=== PATIENT | male | born 1945 | race Caucasian/White ===

== ENCOUNTER 2017-04-23 09:48 | Emergency (ER) | payer MEDICARE, BC | END 2017-04-23 11:47 | disposition home or self-care (01) | LOC: D.ER 09:48 | DX: J02.9 Acute pharyngitis, unspecified (principal); I10 Essential (primary) hypertension; E11.9 Type 2 diabetes mellitus without complications ==

== ENCOUNTER → 2018-01-30 12:59 | Outpatient (CLI) | payer MEDICARE ==
--- NOTE | ~2018-01-30 | EC ---
PATIENT:LUCIO SALAS DATE OF SERVICE: 01/30/18 SEX: M MEDICAL RECORD: [id number] DATE OF : [birth year] LOCATION:[facility] AGE OF PATIENT: 72 ADMISSION DATE: 01/30/18 REFERRING PHYSICIAN: INTERPRETING PHYSICIAN: GIACOMO COWAN MD ECHOCARDIOGRAM REPORT ECHO CHARGES 4 ECHO COMPLETE CLINICAL DIAGNOSIS: CHEST PAIN, DYSPNEA, ABN EKG,HTN ECHOCARDIOGRAPHIC MEASUREMENTS (adult normal given) AC root (d.<3.7cm) 3.7 cm LV Septum d (<1.2 cm> 1.5 cm Valve Excursion 2.2 cm LV Septum (systole) 1.8 cm Left Atria (s.<4.0cm> 4.0 cm LVPW d(<1.2cm) 1.5 cm RV (d.<2.3cm) 2.7 cm LVPW (sytole) 2.0 cm LV diastole(<5.6CM) 5.3 cm MV E-F(>70mm/sec) cm LV systole 3.0 cm LVOT Diameter 1.9 cm MV exc.(>10mm) 1.2 cm Est.ejection fraction (50-75%) % Pericardial Effusion N DOPPLER: LVIT cm/sec A 97.0 cm/sec E 59.0 cm/sec LA cm/sec RVSP 34 mmHg LVOT 109 cm/sec AOP1/2T m/s Asc. Ao 151 cm/sec RVOT 79 cm/sec RA cm/sec PA 148 cm/sec AV Gradient Peak 9.10 mmHg AV Mean 4.56 mmHg AV Area 2.0 cm MV Gradient Peak 3.95 mmHg MV Mean 1.56 mmHg MV Area cm COMMENTS: Armhole Presser: Sherif LYNN Patient Service Technician Pst: Aaron Cowan TAPE# PACS DATE OF SERVICE: 01/30/2018 PROCEDURE: Transthoracic echocardiogram. FINDINGS: 1. The patient has evidence of mild left ventricular hypertrophy and inflow characteristics consistent with diastolic dysfunction. Ejection fraction is 60%. No obvious regional wall motion abnormalities. 2. The left atrium is mildly dilated. 3. The mitral valve is structurally normal. No significant regurgitation. ECHOCARDIOGRAM REPORT [id number] LUCIO SALAS 4. The tricuspid valve is structurally normal. No significant regurgitation. The estimated PA pressure is 30-35 mmHg. 5. The right ventricle is mildly dilated, normal function. Right atrium is normal size, normal function. There is no pericardial effusion. The pulmonic valve is grossly normal. CONCLUSION: The patient has evidence of mild hypertensive heart disease. Otherwise normal echocardiogram for age. TRANSINT:[id number] Voice Confirmation ID: [id number] DOCUMENT ID: [id number] 02/06/2018 Edited to correct date of service, dmm. GIACOMO COWAN MD at 1001 CC: [id number] DICTATION DATE: 02/01/18 0739 BLUNGER: 02/01/18 0944 DEP CLI 01/30/18 [id number] [place] [address]
[~2018-01-30 12:59] MED LIST: CENTRUM SILVER1 TA1 PO; CINNAMON500 MG PO; CITRATE OF MAG300 ML PO; DIOVAN HCT 160/1 TA1 PO; ESSENTIAL ENZYMES; FLOMAX0.4 MG PO; FUROSEMIDE20 MG PO; GLUCOPHAGE850 MG PO; HEMOCYTE PLUS C1 CAP PO; LIPITOR20 MG PO; LOPRESSOR25 MG PO; MAGNESIUM PO; MELATONIN10 M1 PO; PEPCID20 MG PO; PERCOCET 5-3251 TAB PO; PLAVIX75 MG PO; VITAMIN D31000 UNI2 PO; ZYRTEC PO; [UNRECOGNIZED DRUG - OTHER]
[2018-04-04 09:54] VITALS: BMI 32.1
== END | disposition home or self-care (01) ==
LOC: D.ECHO 12:59
DX: R07.9 Chest pain, unspecified (principal); R06.02 Shortness of breath; R00.2 Palpitations; R94.31 Abnormal electrocardiogram [ECG] [EKG]; I10 Essential (primary) hypertension; E11.9 Type 2 diabetes mellitus without complications

== ENCOUNTER → 2018-02-19 16:33 | Outpatient (CLI) | payer MEDICARE ==
[2018-02-19 19:55] LABS: ALT (SGPT) 90 U/L (10-68); CHOL - HDL RATIO 10.5 ratio (2.3-4.9); CHOLESTEROL, TOTAL 252 mg/dL (0-200); CREATINE KINASE 200 UL (21-232); HDL CHOLESTEROL 24 mg/dL (32-96); TRIGLYCERIDE 444 mg/dL (30-200)
[2018-04-04 09:54] VITALS: BMI 32.1
== END | disposition home or self-care (01) ==
LOC: D.LABREF 16:33
PROVIDERS: Internal Medicine Cardiovascular Disease
DX: E78.5 Hyperlipidemia, unspecified (principal)

== ENCOUNTER 2018-03-20 07:42 | Outpatient (CLI) | payer MEDICARE ==
[~2018-03-20] VITALS: Ht 170.2 cm; Wt 88.2 kg
--- NOTE | ~2018-03-20 | HEMODYNAMI ---
PATIENT:LUCIO SALAS MEDICAL RECORD: [id number] : 49 LOCATION:[facility] ADMISSION DATE: 03/20/18 Generatedon:03/20/20189:24 Patient name: LUCIO SALAS Patient #: [id number] SSN: : 1945 Date of study: 03/20/2018 Page: Of Hemodynamic Procedure Report Patient Data Patient Demographics Procedure consent was obtained First Name: LUCIO Gender: Male Last Name: JOSUE : 1945 Middle Initial: C Age: 72 year(s) Patient #: [id number] Race: Unknown Additional ID: [id number] Contact details Address: [address] [place] [address] State: [place] City: [place] Zip code: [address] Past Medical History Allergies: No known allergies Admission Admission Data Admission Date: 03/20/2018 Admission Time: 7:42 Admit Source: Other Lab Results Lab Result Date: 03/20/2018 Lab Result Time: 0:00 Biochemistry Name Units Result Min Max BUN mg/dl 27 --(----)-* 7 18 Creatinine mg/dl 1.5 --(----)-* 0.6 1.3 CBC Name Units Result Min Max Hemoglobin g/dl 13.5 --(*---)-- 13.5 17.5 Procedure Procedure Types Cath Procedure Diagnostic Procedure [facility] w/Coronaries Sedation Charges Moderate Sedation up to 15 minutes Procedure Description Procedure Date Procedure Date: 03/20/2018 Procedure Start Time: 9:01 Procedure End Time: 9:21 Procedure Staff Name Function Zana Monsalve MD Performing Physician Rachana Street RT Monitor Eldon Mayfield RT Scrub David Childress RN Nurse Procedure Data Cath Procedure Fluoroscopy Diagnostic fluoroscopy Total fluoroscopy Time: 2.6 time: 2.6 min min Diagnostic fluoroscopy Total fluoroscopy dose: 682 dose: 682 mGy mGy Contrast Material Contrast Material Type Amount (ml) Isovue 300 55 Entry Location Entry Primary Successful Side Size Upsize Upsize Entry Closure Bunn ccessful Closure Location (Fr) 1 (Fr) 2 (Fr) Remarks Device Remarks Radial Right 6 Fr Mechanical artery Short Compression Estimated blood loss: 5 ml Diagnostic catheters Device Type Used For End Catheter Placement DIAGNOSTIC [place] 110cm Procedure 5Fr catheter ([id number]) Procedure Complications No complications Procedure Medications Medication Administration Route Dosage 0.9% NaCl I.V. 100 ml/hr Oxygen etCO2 Nasal cannula 2 l/min Heparin Flush Bag added to field 2 bags (1000units/500ml NS) Lidocaine 2% added to field 20 Radial Cocktail added to field 1 syringe (Verapomil 2mg/Nitro 400mcg/Heparin 1500units) Versed I.V. 2 mg Fentanyl I.V. 50 mcg Versed I.V. 1 mg Radial Cocktail I.A. 1 syringe (Verapomil 2mg/Nitro 400mcg/Heparin 1500units) Nitroglycerin IC/IA I.C. 75 mcg Hemodynamics Rest HGB: 13.5 (g/dl) Heart Rate: 69 (bpm) Pressure Samples Time Site Value (mmHg) Purpose Heart Use Rate(bpm) 9:09 LV 94/-8,3 EDP 67 Gradients Valve Time Site Site Mean SEP/DFP Peak To Heart Use 1 2 (mmHg) (sec/min) Peak Rate (mmHg) (bpm) Aortic 9:10 LV AO 46 Snapshots Pre Cath Intra NCS Post Cath Vital Signs Time Heart Resp SPO2 etCO2 NIBP (mmHg) Rhythm Pain Sedation Rate (ipm) (%) (mmHg) Status Level (bpm) 8:50:13 75 17 99 32.3 136/85(110) NSR 0 (11) 10(A) , No pain 8:54:50 72 12 98 37.5 120/69(92) NSR 0 (11) 10(A) , No pain 8:59:22 69 14 98 35.3 120/76(97) NSR 0 (11) 10(A) , No pain 9:03:59 71 11 98 36 114/66(85) NSR 0 (11) 10(A) , No pain 9:08:33 69 12 99 36.8 123/69(95) NSR 0 (11) 10(A) , No pain 9:13:05 75 11 95 14.2 86/58(76) NSR 0 (11) 10(A) , No pain 9:17:34 76 12 94 19.5 96/62(84) NSR 0 (11) 10(A) , No pain Medications Time Medication Route Dose Verified Delivered Reason Notes Effectiveness by by 8:48:33 0.9% NaCl I.V. 100 David David Per ml/hr Fior Childress physician RN RN 8:48:52 Oxygen etCO2 2 l/min David David Per Nasal Fior Childress physician cannula RN RN 8:49:06 Heparin Flush added 2 bags David David used for Bag to Lorcar Childress procedure (1000units/500ml field RN RN NS) 8:49:21 Lidocaine 2% added 20ml David David for local to vial Lorigan Fior anesthetic field RN RN 8:50:01 Radial Cocktail added 1 David David used for (Verapomil to syringe Carenigan Fior procedure 2mg/Nitro field RN RN 400mcg/Heparin 1500units) 8:55:24 Versed I.V. 2 mg David David for sedation Fior Childress RN RN 8:55:33 Fentanyl I.V. 50 mcg David David for sedation Fior Childress RN RN 9:01:58 Versed I.V. 1 mg David David for sedation Fior Childress RN RN 9:06:07 Radial Cocktail I.A. 1 David Zana for (Verapomil syringe Fior Monslave MD vasodilation 2mg/Nitro RN 400mcg/Heparin 1500units) 9:14:50 Nitroglycerin I.C. 75 mcg David Zana for IC/IA Fior Monsalve MD vasodilation office assistant receptionist Log Time Note 8:26:43 Informed consent obtained and on chart 8:26:46 Admit Source: Other 8:28:04 Eldon Mayfield RT(R) sent for patient. Start room use. 8:28:08 Time tracking: Regular hours (M-F 7:00 - 5:00) 8:28:16 Plan of Care:Hemodynamics will remain stable., Cardiac rhythm will remain stable., Comfort level will be maintained., Respiratory function will remain adequate., Patient/ family verbilizes understanding of procedure., Procedure tolerated without complication., Recovers from procedure without complications.. 8:28:22 Signed procedure consent form obtained from patient. 8:28:45 H&P Date Dictated: 02/27/2018 Within 30 days and on chart., H&P Addendum completed by physician on day of procedure. (MUST COMPLETE FOR ALL OUTPATIENTS). 8:28:54 Patient allergic to No known allergies 8:34:03 Lab Result : BUN 27 mg/dl 8:34:03 Lab Result : Hemoglobin 13.5 g/dl 8:34:03 Lab Result : Creatinine 1.5 mg/dl 8:38:10 Patient received from Pre/Post Procedure Room to CCL 1 Alert and oriented. Tansferred to table in Supine position. 8:38:12 Warm blankets applied, and herber hugger turned on for patient comfort. 8:38:12 Correct patient and procedure confirmed by team. 8:38:13 ECG and BP/O2 sat monitors applied to patient. 8:48:33 0.9% NaCl 100 ml/hr I.V. was administered by David Childress RN; Per physician; 8:48:52 Oxygen 2 l/min etCO2 Nasal cannula was administered by David Childress RN; Per physician; 8:49:06 Heparin Flush Bag (1000units/500ml NS) 2 bags added to field was administered by David Childress RN; used for procedure; 8:49:21 Lidocaine 2% 20ml vial added to field was administered by David Childress RN; for local anesthetic; 8:49:26 Vital chart was started 8:50:01 Radial Cocktail (Verapomil 2mg/Nitro 400mcg/Heparin 1500units) 1 syringe added to field was administered by David Childress RN; used for procedure; 8:52:11 Baseline sample Acquired. 8:52:21 Rhythm: sinus rhythm 8:52:22 Full Disclosure recording started 8:52:23 Pre-procedure instructions explained to patient. 8:52:24 Pre-op teaching completed and patient verbalized understanding. 8:52:27 Family in patients room. 8:52:31 Patient NPO since Midnight. 8:52:32 Is the patient allergic to Iodine/contrast media? No. 8:52:34 Is patient on blood thinner?Yes 8:52:38 ACC The patient was administered the following blood thiners within the last 24 hours: ACCPlavix 8:52:40 Patient diabetic? Yes. 8:52:42 If diabetic: On Metformin? Yes 8:52:44 If on Metformin: Last Dose? 03/19/2018 8:52:48 Previous problem with sedation/anesthesia? No ? 8:52:49 Snore? Yes 8:52:50 Sleep apnea? Yes 8:52:51 Deviated septum? No 8:52:52 Opens mouth fully? Yes 8:52:53 Sticks out tongue? Yes 8:52:55 Airway obstruction? No ? 8:52:59 Dentures? Yes IN TIGHT 8:53:02 Modified Sergey's test Ulnar < 7 seconds 8:53:04 Patient pain scale 0/10 ?. 8:53:08 IV patent on arrival in left forearm with 0.9% NaCl at [facility]. 8:53:10 Lab results completed and on chart. 8:53:12 Right Radial & Right Groin area was prepped with chlora-prep and draped in sterile fashion 8:53:13 Alarms reviewed by R. N. 8:53:14 Sharps counted by scrub and verified by R.N. 8:54:55 --------ALL STOP TIME OUT------ 8:54:56 Final Timeout: patient, procedure, and site verified with staff and physician. All members of the team are in agreement. 8:54:58 Right Radial & Right Groin site verified by team. 8:55:00 Physical assessment completed. ASA score P 2 - A patient with mild systemic disease as per Zana Monsalve MD. 8:55:04 Sedation plan: IV Moderate Sedation Medication:Versed, Fentanyl 8:55:24 Versed 2 mg I.V. was administered by David Childress RN; for sedation; 8:55:31 Use device set Radial Dx or PCI 8:55:32 ACIST Syringe (75323) opened to sterile field. 8:55:33 Fentanyl 50 mcg I.V. was administered by David Childress RN; for sedation; 8:55:34 ACIST Hand Control (72383) opened to sterile field. 8:55:34 ACIST Manifold (12077) opened to sterile field. 8:55:35 Tegaderm 4 x 4 (1626W) opened to sterile field. 8:55:37 Medline Cath Pack ([id number]) opened to sterile field. 8:55:37 Bag Decanter () opened to sterile field. 8:55:38 DIAGNOSTIC WIRE .035 260cm J wire (339078) opened to sterile field. 8:55:39 MBrace Wrist Support ([id number]) opened to sterile field. 8:55:50 SHEATH 6Fr Prelude Radial ([id number]) opened to sterile field. 8:59:17 Zero performed for pressure channel P1 9:01:27 Procedure started. 9:01:42 Local anesthetic to right radial artery with Lidocaine 2% by Zana Monsalve MD.INITIAL ACCESS ONLY 9:01:58 Versed 1 mg I.V. was administered by David Childress RN; for sedation; 9:05:32 A 6 Fr Short sheath was inserted into the Right Radial artery 9:06:07 Radial Cocktail (Verapomil 2mg/Nitro 400mcg/Heparin 1500units) 1 syringe I.A. was administered by Zana Monsalve MD; for vasodilation; 9:08:23 A DIAGNOSTIC [place] 110cm 5Fr catheter (908157) was advanced over the wire and used for Procedure. 9:09:33 LV gram done using GAO 9:09:54 Injector settings: Ml/sec: 12, Volume: 8, 9:10:00 LV hemodynamics recorded. 9:10:18 EF : 60 % 9:10:54 RCA angiography performed. 9:14:50 Nitroglycerin IC/IA 75 mcg I.C. was administered by Zana Monsalve MD; for vasodilation; 9:15:43 LCA angiography performed. 9:17:17 Catheter removed. 9:17:36 TR BAND Standard ([id number]) opened to sterile field. 9:17:42 Procedure ended.(Physican Out) 9:17:50 Sheath removed intact; hemostasis achieved with Mechanical Compression to the Right Radial artery. 9:18:36 Fluoroscopy time 02.60 minutes. 9:18:42 Flurop Dose total: 682 9:18:42 Fluoroscopy dose: 682 mGy 9:18:46 Contrast amount:Isovue 300 55ml. 9:18:47 Sharps counted by scrub and verified by R.N. 9:20:30 TR band inflated with 10cc of air. 9:20:34 Insertion/operative site no bleeding no hematoma. 9:20:37 Post-procedure physical assessment completed. ASA score P 2 - A patient with mild systemic disease as per Zana Monsalve MD. 9:20:40 Post procedure rhythm: unchanged. 9:20:42 Estimated blood loss: 5 ml 9:20:43 Post procedure instruction explained to patient.Patient verbalizes understanding. 9:20:43 Patient needs reinforcement of post procedure teaching. 9:21:05 Procedure type changed to Cath procedure, Diagnostic procedure, LHC, LHC w/Coronaries, Sedation Charges, Moderate Sedation up to 15 minutes 9:21:24 Procedure and supply charges have been captured, reviewed, submitted and are correct. 9:21:26 Procedure Complication : No complications 9:21:28 Vital chart was stopped 9:21:29 See physician's report for complete and final results. 9:21:31 Report given to Pre/Post Procedure Room. 9:21:35 Patient transfered to Pre/Post Procedure Room with Bed. 9:21:37 Procedure ended. 9:21:37 Full Disclosure recording stopped 9:21:40 End room use (Document Last) Device Usage Item Name Manufacture Quantity Catalog Number Hospital Part Current M inimal Lot# / Charge Number Stock Stock Serial# Code ACIST Syringe Acist 1 70372 091315 214220 270664 2 0 (95169) [employer] Inc ACIST Hand Acist 1 54705 135963 103482 528345 5 Control (42629) [employer] ACIST Manifold Acist 1 56709 715175 348060 093344 5 (25739) [employer] Inc Tegaderm 4 x 4 3M 1 1626W 020424 028015 005034 5 (1626W) Medline Cath Cardinal 1 [id number] 750193 54712 340166 5 Pack Health ([id number]) Bag Decanter Microtek 1 2001S 180058 61940 682139 5 (2001S) Medical Inc. DIAGNOSTIC WIRE St [place] 1 791291 789624 810312 621108 3 0 .035 260cm J wire (077783) MBrace Wrist Advanced 1 140-0250-00 158542 40640 755828 5 Support Vascular ([id number]) Dynamics SHEATH 6Fr Merit 1 [id number] 821190 628023 809152 5 Prelude Radial Medical ([id number]) DIAGNOSTIC Terumo 1 29-7369 325803 443220 455398 5 [place] 110cm 5Fr catheter (079304) TR BAND Terum 1 [id number] 606495 993972 166402 4 0 Standard ([id number]) Signature Audit [place] Stage Time Signature Unsigned Intra-Procedure 03/20/[address] 9:24:15 AM RT(R) Signatures Monitor : R[address]ana [address] Signature : RT Date : Time : [place] [id number] [facility]
--- NOTE | ~2018-03-20 | OP ---
PATIENT NAME: LUCIO SALAS MEDICAL RECORD: [id number] :49 LOCATION:[facility] ADMISSION DATE: SURGEON: GIACOMO COWAN MD DATE OF OPERATION: 03/20/2018 PROCEDURE: Left heart catheterization, LV gram, coronary angiogram. PROCEDURE IN DETAIL: The patient was brought into cardiac catheterization lab in stable condition. Both groins and the right wrist were sterilely prepped and draped. We were able to gain access in the right radial artery using modified Seldinger technique. We were then able to selectively engage the left coronary artery, the right coronary artery and the left ventricular cavity for complete heart catheterization. This was done in a selective fashion. FINDINGS: 1. The right coronary artery is a dominant vessel and has an ostial 70% stenosis, a mid calcified 90% to 95% stenosis, and a distal 70% stenosis. 2. The right posterior descending artery is dominant and has mild plaquing. 3. The left main coronary artery has mild plaquing. 4. The LAD has a mid 90% stenosis eccentric at the takeoff of a diagonal that is moderate size diagonal with a 95% stenosis, has good distal targets. 5. The circumflex is shown to have a mid 80% stenosis at the bifurcation and continuation of an obtuse marginal branch. HEMODYNAMICS: The left ventricular ejection fraction 65%, end-diastolic pressure is normal. There is no significant mitral regurgitation. There is no gradient across the aortic valve. IMPRESSION: Severe multivessel coronary artery disease in a diabetic patient with preserved LV systolic function, consider coronary artery bypass grafting versus multivessel stenting. TRANSINT:[id number] Voice Confirmation ID: [id number] DOCUMENT ID: [id number] GIACOMO COWAN MD at 0741 CC: [id number] DICTATION DATE: 03/20/18 0946 INSURANCE PROCESSING CLERK: 03/20/18 1211 [facility] CLI 03/20/18 [place] [id number] [place] [id number]
[2018-03-20 07:30] VITALS: BP 134/68; BMI 30.4
[2018-03-20 07:35] LABS: BASOPHILS 0.4 % (0-2); EOSINOPHILS 2.6 % (0-7); HEMATOCRIT 39.5 % (42.0-54.0); HEMOGLOBIN 13.5 g/dL (13.5-17.5); IMMATURE GRANULOCYTES 0.6 % (0-5); LYMPHOCYTES 31.9 % (15-50); MCHC 34.2 g/dL (31.0-37.0); MCV 84.8 fL (80.0-100.0); MEAN PLATELET VOLUME 12.2 fL (7.4-10.4); MONOCYTES 9.4 % (2-11); NEUTROPHILS 55.1 % (40-80); PLATELET COUNT 147 10x3/uL (130-400); RBC 4.66 10x6/uL (4.20-6.10); RDW 13.7 % (11.5-14.5); WBC 4.7 10x3/uL (4.8-10.8)
[~2018-03-20 07:42] MED LIST changes: -FUROSEMIDE20 MG PO; -HEMOCYTE PLUS C1 CAP PO; -LOPRESSOR25 MG PO; -MAGNESIUM PO; -MELATONIN10 M1 PO; -PERCOCET 5-3251 TAB PO
[2018-03-20 07:59] LABS: ANION GAP 17.1 mmol/L (8-16); CALCIUM 9.6 mg/dL (8.5-10.1); CARBON DIOXIDE 23.9 mmol/L (21.0-32.0); CREATININE - SERUM 1.5 mg/dL (0.6-1.3)
[2018-03-20 11:39] VITALS: Ht 170.2 cm; Wt 88.2 kg
[2018-03-20 12:37] LABS: PLT FUNCT.(P2Y12) PLAVIX 156 PRU (194-418)
== END 2018-03-20 12:15 | disposition home or self-care (01) ==
LOC: D.CATH 07:42
PROVIDERS: Internal Medicine Cardiovascular Disease; Thoracic Surgery (Cardiothoracic Vascular Surgery)
DX: I25.10 Atherosclerotic heart disease of native coronary artery without angina pectoris (principal); I10 Essential (primary) hypertension; E78.5 Hyperlipidemia, unspecified; E11.9 Type 2 diabetes mellitus without complications; Z01.812 Encounter for preprocedural laboratory examination

== ENCOUNTER 2018-03-30 10:00 | Inpatient (IN) | payer MEDICARE ==
[~2018-03-30] VITALS: Ht 170.2 cm; Wt 93.6 kg
--- NOTE | ~2018-03-30 | OP ---
PATIENT NAME: LUCIO SALAS MEDICAL RECORD: [id number] :49 LOCATION:[facility] ADMISSION DATE:04/03/18 SURGEON: LÁZARO CARTER MD DATE OF OPERATION: 04/03/2018 SURGEON: Lázaro Carter MD ELEMENTARY INSTRUCTIONAL COACH: THOMAS Koch MD and VERNELL Espinoza OPERATION PERFORMED: Coronary artery bypass graft times 4 (left internal mammary artery to LAD, reverse saphenous vein graft from aorta to second diagonal, aorta to obtuse marginal, and aorta to posterior descending artery). POSTOPERATIVE DIAGNOSES: Coronary artery disease, unstable angina. POSTOPERATIVE DIAGNOSES: Coronary artery disease, unstable angina. ANESTHESIA: General endotracheal anesthesia. ESTIMATED BLOOD LOSS: Total cardiopulmonary bypass with Cell Saver retransfusion. COMPLICATIONS: None. SPECIMENS: Internal mammary artery lymph node for permanent specimen. CONDITION: Stable. DISPOSITION: CV ICU. OPERATIVE FINDINGS: 1. Good quality greater saphenous vein, but a smaller somewhat tortuous portion in the proximal part of the saphenous vein graft to the PDA. 2. LAD was a severely diseased 1.25 mm vessel, 1.0 mm probe passed distally all the way to the apex, the left internal mammary artery was a good conduit. 3. Second diagonal severely diseased 1.5 mm vessel. 4. Obtuse marginal 2.0 mm moderately diseased vessel. 5. Posterior descending artery, 1.5 mm vessel with mild to moderate disease. 6. Normal size heart, good contractility. Trace mitral regurgitation on transesophageal echocardiography prior to cardiopulmonary bypass. OPERATIVE INDICATION: Coronary artery disease, symptomatic. SUMMARY IN DETAIL: The patient was brought to the operating suite, general anesthesia was obtained, the patient was prepped and draped. Greater saphenous vein was harvested from the right lower extremity utilizing bridging incisions. Side branches were clipped. The vessel was removed. Side branches were clipped or tied. The leg was irrigated later and closed in multiple layers. A sternotomy incision was made. Subcutaneous tissue divided with electrocautery and the sternum was divided. The left hemisternum was elevated. The left pleural cavity was entered. Left internal mammary artery and vein was taken as a pedicle graft. Sternal retractor was placed. Pericardium was opened. Heparin was given. The OPERATIVE REPORT [id number] LUCIO SALAS patient was cannulated in standard technique. The internal mammary was clipped distally and made ready for anastomosis. Activated clotting time was appropriately elevated. The patient was placed on cardiopulmonary bypass. The sites for distal anastomosis were selected. Antegrade needle was inserted. The patient was cooled. Crossclamp was placed. Cardioplegia was given antegrade and this was repeated at 15 to 20 minute intervals including down the completed vein grafts. Distal anastomoses were performed in standard technique. Proximal anastomosis with a single cross-clamp technique. The aortic root then de-aired, clamp removed. Proximal anastomosis was tied down. Vein grafts de-aired and flow was restored, single 6-0s was in the proximals for bleeding, and a small epicardial vein near the internal mammary artery made hemostatic. The patient resumed a spontaneous rhythm, fully rewarmed, weaned from cardiopulmonary bypass and was stable. The patient was decannulated. Cannulation sites were oversewn. Protamine was given. Thorough irrigation was undertaken and the grafts laid appropriately. A drain was placed in the mediastinum and left pleural cavity, one with the tip in the right pleural cavity. The pericardial fat was loosely reapproximated. The internal mammary harvest site was inspected for bleeding. The left chest was evacuated and irrigated. Sternum was closed with wires. Fascia was closed. Subcutaneous tissue was closed. Skin was closed. Dermabond was placed. The needle and sponge counts were correct. The patient was taken to the ICU in stable condition. TRANSINT:[id number] Voice Confirmation ID: [id number] DOCUMENT ID: [id number] LÁZARO CARTER MD at 1032 CC: [id number] DICTATION DATE: 04/03/18 1502 CRIME SPECIALIST: 04/03/18 1541 ADM [address] [place] [id number] [place] [address]
--- NOTE | ~2018-03-30 | TEE ---
PATIENT:LUCIO SALAS MEDICAL RECORD: [id number] LOCATION:[place] [address] AGE OF PATIENT: 73 ADMISSION DATE: 04/03/18 SEX: M REFERRING PHYSICIAN: INTERPRETING PHYSICIAN: GIACOMO COWAN MD TRANSESOPHAGEAL ECHOCARDIOGRAM Date: 04/03/18 PABLO CHARGE Y INDICATIONS: CABG PREMEDICATIONS: PATIENT'S RESPONSE PROCEDURE DOPPLER MEASUREMENTS: LVIT LA PA RA LVOT RVOT Asc. Ao AV Gradient Peak AV Mean AV Area MV Gradient Peak MV Mean MV Area INTERPRETATION: Doppler: 2-D: COLOR FLOW DOPPLER PRE- TRACE/MILD MR NORMAL SALINE STUDY: MISCELLANOUS: DIAGNOSIS: PLAN: Investment Counselor:4 Dr. Cowan Lab Coordinator: Sherif LYNN COMMENTS: DATE OF SERVICE: 04/04/2018 PROCEDURE: Transesophageal Echocardiogram INDICATION: The patient underwent transesophageal echocardiogram during coronary artery bypass grafting. FINDINGS: 1. Left ventricle is shown to have mild left ventricular hypertrophy with normal TRANSESOPHAGEAL ECHOCARDIOGRAM REPORT [id number] LUCIO SALAS function, ejection fraction 55% to 60%. 2. The mitral valve appears to be structurally normal with mild mitral regurgitation. 3. Tricuspid valve is shown to be structurally normal. In the right atrium, there is a catheter artifact. There is trace to mild tricuspid regurgitation. Post-CABG, the ejection fraction had become hyperdynamic. There are no wall motion abnormalities. There was no significant pericardial effusion. TRANSINT:[id number] Voice Confirmation ID: [id number] DOCUMENT ID: [id number] at 0819 CC: [id number] DICTATION DATE: 04/04/1828 STRAP STITCHER: 04/05/18 0505 DIS IN 04/08/[address] [facility] [address] [place] [id number]
[2018-03-30 11:52] LABS: BASOPHILS 0.4 % (0-2); EOSINOPHILS 1.9 % (0-7); HEMATOCRIT 38.2 % (42.0-54.0); HEMOGLOBIN 12.9 g/dL (13.5-17.5); IMMATURE GRANULOCYTES 0.2 % (0-5); LYMPHOCYTES 32.4 % (15-50); MCHC 33.8 g/dL (31.0-37.0); MCV 85.8 fL (80.0-100.0); MEAN PLATELET VOLUME 11.6 fL (7.4-10.4); MONOCYTES 7.4 % (2-11); NEUTROPHILS 57.7 % (40-80); PLATELET COUNT 142 10x3/uL (130-400); RBC 4.45 10x6/uL (4.20-6.10); RDW 13.8 % (11.5-14.5); WBC 4.9 10x3/uL (4.8-10.8)
[2018-03-30 12:02] LABS: APPEARANCE CLEAR (CLEAR); BILIRUBIN NEGATIVE (NEGATIVE); COLOR YELLOW (YELLOW); GLUCOSE NEGATIVE (NEGATIVE); KETONE NEGATIVE (NEGATIVE); NITRITE NEGATIVE (NEGATIVE); PROTEIN NEGATIVE (NEGATIVE); UROBILINOGEN NORMAL (NORMAL)
[2018-03-30 12:09] LABS: APTT 31.2 SECONDS (22.8-39.4); PROTIME 12.8 SECONDS (11.6-15.0)
[2018-03-30 12:51] LABS: ALBUMIN 4.2 g/dL (3.4-5.0); ANION GAP 16.8 mmol/L (8-16); BILIRUBIN - TOTAL 0.54 mg/dL (0.2-1.3); CALCIUM 9.8 mg/dL (8.5-10.1); CARBON DIOXIDE 24.5 mmol/L (21.0-32.0); CREATININE - SERUM 1.4 mg/dL (0.6-1.3); POTASSIUM - SERUM 4.3 mmol/L (3.5-5.1); PROTEIN - SERUM 7.5 g/dL (6.4-8.2); T4 THYROXIN - FREE 0.92 ng/dL (0.76-1.46); THYROID STIMULATING HORMONE 3.23 uIU/mL (0.36-3.74); URIC ACID 9.3 mg/dL (2.6-7.2)
[2018-04-03] VITALS (36 sets, daily range): BP systolic 88–161; BP diastolic 44–91; BMI 30.1
[2018-04-03] MEDS ORDERED: MAGNESIUM PO (05:54)
[2018-04-03] MEDS ORDERED: MELATONIN10 M1 PO (05:56)
[2018-04-03 07:46] LABS: PLT FUNCT.(P2Y12) PLAVIX 298 PRU (194-418)
[2018-04-03 12:37] LABS: HEMATOCRIT 30.6 % (42.0-54.0); HEMOGLOBIN 10.2 g/dL (13.5-17.5); MCH 28.6 pg (26.0-34.0); MCHC 33.3 g/dL (31.0-37.0); MCV 85.7 fL (80.0-100.0); MEAN PLATELET VOLUME 12.1 fL (7.4-10.4); RBC 3.57 10x6/uL (4.20-6.10); RDW 13.6 % (11.5-14.5); WBC 11.4 10x3/uL (4.8-10.8)
[2018-04-03 12:45] LABS: ANION GAP 16.4 mmol/L (8-16); CALCIUM 7.7 mg/dL (8.5-10.1); CARBON DIOXIDE 23.5 mmol/L (21.0-32.0); CREATININE - SERUM 1.5 mg/dL (0.6-1.3); POTASSIUM - SERUM 3.9 mmol/L (3.5-5.1)
[2018-04-03 12:55] LABS: APTT 31.6 SECONDS (22.8-39.4); INR 1.37 (0.85-1.17); PROTIME 16.4 SECONDS (11.6-15.0)
[2018-04-04] VITALS (30 sets, daily range): BP systolic 86–132; BP diastolic 41–82; Ht 170.2 cm; Wt 93.6 kg
[2018-04-04 06:47] LABS: ALBUMIN 2.8 g/dL (3.4-5.0); ANION GAP 13.7 mmol/L (8-16); BILIRUBIN - TOTAL 0.38 mg/dL (0.2-1.3); CALCIUM 7.9 mg/dL (8.5-10.1); CARBON DIOXIDE 26.4 mmol/L (21.0-32.0); CREATININE - SERUM 1.5 mg/dL (0.6-1.3); POTASSIUM - SERUM 4.1 mmol/L (3.5-5.1); PROTEIN - SERUM 5.2 g/dL (6.4-8.2)
[2018-04-04 07:40] LABS: HEMOGLOBIN 10.6 g/dL (13.5-17.5); MCH 28.6 pg (26.0-34.0); MCHC 33.1 g/dL (31.0-37.0); MCV 86.3 fL (80.0-100.0); MEAN PLATELET VOLUME 12.1 fL (7.4-10.4); RBC 3.71 10x6/uL (4.20-6.10); RDW 14.2 % (11.5-14.5); WBC 10.7 10x3/uL (4.8-10.8)
[2018-04-05] VITALS (23 sets, daily range): BP systolic 85–116; BP diastolic 46–67
[2018-04-05 06:42] LABS: HEMATOCRIT 28.6 % (42.0-54.0); HEMOGLOBIN 9.3 g/dL (13.5-17.5); MCH 28.4 pg (26.0-34.0); MCHC 32.5 g/dL (31.0-37.0); MCV 87.5 fL (80.0-100.0); MEAN PLATELET VOLUME 12.2 fL (7.4-10.4); RBC 3.27 10x6/uL (4.20-6.10); RDW 14.9 % (11.5-14.5); WBC 11.2 10x3/uL (4.8-10.8)
[2018-04-05 07:17] LABS: ALBUMIN 2.7 g/dL (3.4-5.0); ANION GAP 12.5 mmol/L (8-16); BILIRUBIN - TOTAL 0.5 mg/dL (0.2-1.3); CARBON DIOXIDE 27.2 mmol/L (21.0-32.0); POTASSIUM - SERUM 3.7 mmol/L (3.5-5.1); PROTEIN - SERUM 5.8 g/dL (6.4-8.2)
[2018-04-05 07:24] LABS: CREATININE - SERUM 2.1 mg/dL (0.6-1.3)
[2018-04-06] VITALS (25 sets, daily range): BP systolic 86–141; BP diastolic 52–78
[2018-04-06 06:25] LABS: HEMATOCRIT 25.4 % (42.0-54.0); HEMOGLOBIN 8.1 g/dL (13.5-17.5); MCH 28.2 pg (26.0-34.0); MCHC 31.9 g/dL (31.0-37.0); MCV 88.5 fL (80.0-100.0); MEAN PLATELET VOLUME 10.9 fL (7.4-10.4); RBC 2.87 10x6/uL (4.20-6.10); RDW 14.9 % (11.5-14.5); WBC 8.7 10x3/uL (4.8-10.8)
[2018-04-06 06:43] LABS: ALBUMIN 2.4 g/dL (3.4-5.0); ANION GAP 10.9 mmol/L (8-16); BILIRUBIN - TOTAL 0.43 mg/dL (0.2-1.3); CALCIUM 8.2 mg/dL (8.5-10.1); CARBON DIOXIDE 30.1 mmol/L (21.0-32.0); CREATININE - SERUM 1.6 mg/dL (0.6-1.3); PROTEIN - SERUM 5.6 g/dL (6.4-8.2)
[2018-04-07] VITALS (24 sets, daily range): BP systolic 85–141; BP diastolic 57–75
[2018-04-07 06:08] LABS: HEMATOCRIT 24.7 % (42.0-54.0); HEMOGLOBIN 7.9 g/dL (13.5-17.5); MCH 28.2 pg (26.0-34.0); MCV 88.2 fL (80.0-100.0); MEAN PLATELET VOLUME 10.8 fL (7.4-10.4); RBC 2.8 10x6/uL (4.20-6.10); WBC 6.9 10x3/uL (4.8-10.8)
[2018-04-07 06:36] LABS: ALBUMIN 2.2 g/dL (3.4-5.0); ANION GAP 13.8 mmol/L (8-16); BILIRUBIN - TOTAL 0.3 mg/dL (0.2-1.3); CALCIUM 8.5 mg/dL (8.5-10.1); CARBON DIOXIDE 26.6 mmol/L (21.0-32.0); CREATININE - SERUM 1.5 mg/dL (0.6-1.3); POTASSIUM - SERUM 4.4 mmol/L (3.5-5.1); PROTEIN - SERUM 5.6 g/dL (6.4-8.2)
[2018-04-08] VITALS (12 sets, daily range): BP systolic 103–144; BP diastolic 55–83
[2018-04-08 06:42] LABS: MCH 28.2 pg (26.0-34.0); MCHC 31.7 g/dL (31.0-37.0); MCV 88.9 fL (80.0-100.0); MEAN PLATELET VOLUME 9.9 fL (7.4-10.4); RDW 14.6 % (11.5-14.5); WBC 6.4 10x3/uL (4.8-10.8)
[2018-04-08 06:43] LABS: HEMATOCRIT 30.3 % (42.0-54.0); HEMOGLOBIN 9.6 g/dL (13.5-17.5); RBC 3.41 10x6/uL (4.20-6.10)
[2018-04-08 07:18] LABS: ALBUMIN 2.7 g/dL (3.4-5.0); ANION GAP 12.9 mmol/L (8-16); BILIRUBIN - TOTAL 0.5 mg/dL (0.2-1.3); CALCIUM 8.9 mg/dL (8.5-10.1); CARBON DIOXIDE 26.8 mmol/L (21.0-32.0); CREATININE - SERUM 1.4 mg/dL (0.6-1.3); POTASSIUM - SERUM 4.7 mmol/L (3.5-5.1); PROTEIN - SERUM 6.1 g/dL (6.4-8.2)
[2018-04-08] MEDS ORDERED: HEMOCYTE PLUS C1 CAP PO (12:30)
[2018-04-08] MEDS ORDERED: LOPRESSOR25 MG PO (12:31)
[2018-04-08] MEDS ORDERED: PERCOCET 5-3251 TAB PO (12:32)
[2018-04-08] MEDS ORDERED: FUROSEMIDE20 MG PO (12:35)
== END 2018-04-08 13:55 | disposition home or self-care (01) | DRG 236 ==
LOC: D.SDCHOLD 10:00 → D.CVICU 04-03 05:15 → D.SDCHOLD 04-03 05:15 → D.CVICU 04-03 10:41 → D.SDCHOLD 04-03 11:00 → D.CVICU 04-08 13:55
PROVIDERS: Internal Medicine Cardiovascular Disease; Thoracic Surgery (Cardiothoracic Vascular Surgery)
PROC: 021209W Bypass Coronary Artery, Three Arteries from Aorta with Autologous Venous Tissue, Open Approach (ICD-10-PCS; 2018-04-03)
PROC: 06BP0ZZ Excision of Right Saphenous Vein, Open Approach (ICD-10-PCS; 2018-04-03)
PROC: 5A1221Z Performance of Cardiac Output, Continuous (ICD-10-PCS; 2018-04-03)
PROC: 02100Z9 Bypass Coronary Artery, One Artery from Left Internal Mammary, Open Approach (ICD-10-PCS; principal; 2018-04-03 07:30)
DX: I25.110 Atherosclerotic heart disease of native coronary artery with unstable angina pectoris (principal); E11.9 Type 2 diabetes mellitus without complications; I10 Essential (primary) hypertension

== ENCOUNTER → 2018-04-25 08:21 | Outpatient (CLI) | payer MEDICARE ==
[2018-04-04 09:54] VITALS: BMI 32.1
[~2018-04-25 08:21] MED LIST changes: +FUROSEMIDE20 MG PO; +HEMOCYTE PLUS C1 CAP PO; +LOPRESSOR25 MG PO; +MAGNESIUM PO; +MELATONIN10 M1 PO; +PERCOCET 5-3251 TAB PO
[2018-04-25 09:27] LABS: HEMATOCRIT 35.7 % (42.0-54.0); HEMOGLOBIN 11.5 g/dL (13.5-17.5)
== END | disposition home or self-care (01) ==
LOC: D.RAD 08:00
PROVIDERS: Thoracic Surgery (Cardiothoracic Vascular Surgery)
DX: J91.8 Pleural effusion in other conditions classified elsewhere (principal); D64.9 Anemia, unspecified

== ENCOUNTER → 2018-10-15 17:55 | Outpatient (CLI) | payer MEDICARE ==
[2018-04-04 09:54] VITALS: BMI 32.1
[2018-10-15 18:39] LABS: CHOL - HDL RATIO 4.2 ratio (2.3-4.9)
== END | disposition home or self-care (01) ==
LOC: D.LABREF 17:55
PROVIDERS: Internal Medicine Cardiovascular Disease
DX: I10 Essential (primary) hypertension (principal)

== ENCOUNTER → 2019-04-12 11:28 | Outpatient (CLI) | payer MEDICARE ==
[2018-04-04 09:54] VITALS: BMI 32.1
== END | disposition home or self-care (01) ==
LOC: D.HCCARDIO 11:28
PROVIDERS: ATTEND Internal Medicine Cardiovascular Disease
DX: I10 Essential (primary) hypertension (principal)

== ENCOUNTER → 2019-08-06 08:55 | Outpatient (CLI) | payer MEDICARE ==
[2018-04-04 09:54] VITALS: BMI 32.1
--- NOTE | 2019-08-09 15:34 | ST ---
PATIENT:LUCIO SALAS MEDICAL RECORD: [id number] SEX: M LOCATION:[facility] ORDER #: ADMISSION DATE: 08/06/19 AGE OF PATIENT: 74 REFERRING PHYSICIAN: INTERPRETING PHYSICIAN: MARIA C SPEARS MD DATE OF SERVICE: 08/06/2019 INDICATION: Angina, coronary artery disease, previous coronary bypass graft surgery, and hypertension. He was exercised on standard Lexiscan protocol with 33 mCi of sestamibi injected at peak stress, 11 mCi used previously for rest images. FINDINGS: Gated SPECT reveals a preserved ejection fraction at 58% with good wall motioning and thickening and brightening throughout all segments. SPECT imaging Cardiolite was used as myocardial perfusion agent. There is reversible ischemia anteriorly and laterally. There is good basal, mid, apical anterior segments as well as apical, lateral, mid lateral, basal lateral segments. The degree of reversibility is moderate. The amount of myocardium involved is large. OVERALL IMPRESSION: This is a high risk abnormal nuclear stress test with a large amount of myocardium involved with reversible ischemia anteriorly as well as lateral leads, possibly suggestive of multivessel coronary artery disease. TRANSINT:[id number] Voice Confirmation ID: [id number] DOCUMENT ID: [id number] MARIA C SPEARS MD at 1534 CC: CORINNE THOMAS [id number] DICTATION DATE: 08/08/192204 PSYCHOLOGY LECTURER: 08/09/19 0146 DEP CLI 08/06/19 [facility] [address] [place] [address]
== END | disposition home or self-care (01) ==
LOC: D.HCCARDIO 08:55
PROVIDERS: ATTEND Internal Medicine Interventional Cardiology
DX: I25.810 Atherosclerosis of coronary artery bypass graft(s) without angina pectoris (principal)

== ENCOUNTER 2019-08-21 10:57 | Outpatient (CLI) | payer MEDICARE ==
[~2019-08-21] VITALS: Ht 170.2 cm; Wt 86.4 kg
--- NOTE | ~2019-08-21 | HEMODYNAMI ---
PATIENT:LUCIO SALAS MEDICAL RECORD: [id number] : 49 LOCATION:[facility] ADMISSION DATE: 08/21/19 Generatedon:08/21/201914:52 Patient name: LUCIO SALAS Patient #: [id number] SSN: : 1945 Date of study: 08/21/2019 Page: Of Hemodynamic Procedure Report Patient Data Patient Demographics Procedure consent was obtained First Name: LUCIO Gender: Male Last Name: JOSUE : 1945 [facility] Initial: GURU Age: 74 year(s) Patient #: [id number] Race: Unknown Additional ID: [id number] Contact details [address]: [address] [place] [address] State: [place] City: [place] Zip code: [address] Past Medical History Allergies: No known allergies Admission Admission Data Admission Date: 08/21/2019 Admission Time: 10:57 Lab Results Lab Result Date: 08/21/2019 Lab Result Time: 0:00 Biochemistry Name Units Result Min Max BUN mg/dl 28 --(----)-* 7 18 Creatinine mg/dl 1.5 --(----)-* 0.6 1.3 eGFR ml/min 49 *-(----)-- 90 120 NONAFRICAN CBC Name Units Result Min Max Hematocrit % 37.6 *-(----)-- 42 54 Hemoglobin g/dl 13 -*(----)-- 13.5 17.5 Procedure Procedure Types Cath Procedure Diagnostic Procedure LHC LHC w/Coronaries w/Grafts Sedation Charges Moderate Sedation up to 15 minutes Procedure Description Procedure Date Procedure Date: 08/21/2019 Procedure Start Time: 14:24 Procedure End Time: 14:47 Procedure Staff Name Function Jos Mae MD Performing Physician Rachana Street RT Monitor Lilly Wong RT Scrub Clark Jaimes RN Nurse Procedure Data Cath Procedure Fluoroscopy Diagnostic fluoroscopy Total fluoroscopy Time: 4.7 time: 4.7 min min Diagnostic fluoroscopy Total fluoroscopy dose: 766 dose: 766 mGy mGy Contrast Material Contrast Material Type Amount (ml) Isovue 300 134 Entry Location Entry Primary Successful Side Size Upsize Upsize Entry Closure Succes sful Closure Location (Fr) 1 (Fr) 2 (Fr) Remarks Device Remarks Femoral Right 5 Fr Exoseal artery Estimated blood loss: 5 ml Diagnostic catheters Device Type Used For End Catheter Placement MULTIPACK JL 4.0 5Fr Procedure catheter DIAGNOSTIC AR MOD 5Fr Procedure Catheter ([id number]) DIAGNOSTIC IM 5Fr Procedure catheter ([id number]) MULTIPACK Pigtail 5 Fr Procedure catheter Procedure Complications No complications Procedure Medications Medication Administration Route Dosage Oxygen etCO2 Nasal cannula 2 l/min Lidocaine 2% added to field 20 Heparin Flush Bag added to field 2 bags (1000units/500ml NS) 0.9% NaCl I.V. 100 ml/hr Versed I.V. 2 mg Fentanyl I.V. 100 mcg Versed I.V. 1 mg Versed I.V. 1 mg Versed I.V. 1 mg Hemodynamics Rest HGB: 13 (g/dl) Heart Rate: 110 (bpm) Pressure Samples Time Site Value (mmHg) Purpose Heart Use Rate(bpm) 14:42 LV 111/-10,8 Snapshot 77 14:42 LV 112/-10,8 Snapshot 78 Gradients Valve Time Site Site Mean SEP/DFP Peak To Heart Use 1 2 (mmHg) (sec/min) Peak Rate (mmHg) (bpm) Aortic 14:42 LV AO 77 Snapshots Pre Cath Intra NCS Post Cath Vital Signs Time Heart Resp SPO2 etCO2 NIBP (mmHg) Rhythm Pain Sedation Rate (ipm) (%) (mmHg) Status Level (bpm) 14:16:27 76 13 96 19.3 131/76(98) NSR 0 (11) 10(A) , No pain 14:20:35 73 18 98 37.2 122/76(94) NSR 0 (11) 10(A) , No pain 14:25:22 76 15 96 24.6 123/79(97) NSR 0 (11) 9(A) , No pain 14:29:36 73 16 98 26.8 117/69(112) NSR 0 (11) 9(A) , No pain 14:33:46 66 16 99 17.1 136/76(97) NSR 0 (11) 9(A) , No pain 14:37:56 79 13 100 29.8 131/79(105) NSR 0 (11) 9(A) , No pain 14:42:03 77 14 100 31.3 101/69(87) NSR 0 (11) 9(A) , No pain 14:46:07 75 13 99 14.1 116/71(93) NSR 0 (11) 10(A) , No pain Medications Time Medication Route Dose Verified Delivered Reason Notes Eff ectiveness by by 14:16:04 Oxygen etCO2 2 Jos Buffie used for Nasal l/min Tu Jaimes RN procedure cannula 14:16:10 Lidocaine 2% added 20ml Jos Jos for local to vial Tu Mae MD anesthetic field 14:16:16 Heparin Flush added 2 Jos Jos used for Bag to bags Tu Mae MD procedure (1000units/500ml field NS) 14:16:25 0.9% NaCl I.V. 100 Jos Buffie Per ml/hr Tu Jaimse RN physician 14:21:30 Versed I.V. 2 mg Jos Buffie for Tu Jaimes RN sedation 14:21:36 Fentanyl I.V. 100 Jos Buffie for mcg Tu Jaimes RN sedation 14:26:17 Versed I.V. 1 mg Jos Buffie for Tu Jaimes RN sedation 14:31:18 Versed I.V. 1 mg Jos Buffie for Tu Jaimes RN sedation 14:36:54 Versed I.V. 1 mg Jos Buffie for Tu Jaimes RN sedation Procedure Log Time Note 13:51:32 Procedure Status Elective Heart Cath (OP). 13:51:36 Time tracking: Regular hours (M-F 7:00 - 5:00) 13:51:39 Plan of Care:Hemodynamics will remain stable., Cardiac rhythm will remain stable., Comfort level will be maintained., Respiratory function will remain adequate., Patient/ family verbilizes understanding of procedure., Procedure tolerated without complication., Recovers from procedure without complications.. 13:51:42 Clark Jaimes RN sent for patient. Start room use. 13:51:43 Signed procedure consent form obtained from patient. 14:01:41 Patient allergic to No known allergies 14:02:28 Lab Result : BUN 28 mg/dl 14:02:28 Lab Result : Creatinine 1.5 mg/dl 14:: Lab Result : eGFR NONAFRICAN 49 ml/min 14:: Lab Result : Hemoglobin 13 g/dl 14:: Lab Result : Hematocrit 37.6 % 14:06:56 Patient received from Pre/Post Procedure Room to CCL 1 Alert and oriented. Tansferred to table in Supine position. 14:06:57 Warm blankets applied, and herber hugger turned on for patient comfort. 14:06:58 Correct patient and procedure confirmed by team. 14:06:58 ECG and BP/O2 sat monitors applied to patient. 14:15:23 Vital chart was started 14:15:25 Baseline sample Acquired. 14:15:27 Rhythm: sinus rhythm 14:: Full Disclosure recording started 14:15:42 H&P Date Dictated: 07/31/2019 Within 30 days and on chart., H&P Addendum completed by physician on day of procedure. (MUST COMPLETE FOR ALL OUTPATIENTS). 14:15:43 Pre-procedure instructions explained to patient. 14:15:43 Pre-op teaching completed and patient verbalized understanding. 14:15:44 Family in patients room. 14:15:46 Patient NPO since Midnight. 14:15:48 Is patient on blood thinner?No 14:15:49 Is the patient allergic to Iodine/contrast media? No. 14:15:50 Patient diabetic? Yes. 14:15:52 If diabetic: On Metformin? Yes 14:15:56 If on Metformin: Last Dose? 08/19/2019 14:16:02 Snore? Yes 14:16:04 Oxygen 2 l/min etCO2 Nasal cannula was administered by Clark Jaimes RN; used for procedure; Verbal order read back and verified. 14:16:04 Previous problem with sedation/anesthesia? No ? 14:16:07 Sleep apnea? No 14:16:08 Deviated septum? No 14:16:08 Opens mouth fully? Yes 14:16:09 Sticks out tongue? Yes 14:16:10 Lidocaine 2% 20ml vial added to field was administered by Jos Mae MD; for local anesthetic; Verbal order read back and verified. 14:16:12 Airway obstruction? No ? 14:16:13 Dentures? No ? 14:16:15 Pre procedure: right dorsailis pedis pulse 1+ Palpable, but thready & weak; easily obliterated 14:16:16 Heparin Flush Bag (1000units/500ml NS) 2 bags added to field was administered by Jos Mae MD; used for procedure; Verbal order read back and verified. 14:16:25 0.9% NaCl 100 ml/hr I.V. was administered by Clark Jaimes RN; Per physician; Verbal order read back and verified. 14:16:27 Patient pain scale 0/10 ?. 14:16:36 IV patent on arrival in left hand with 0.9% NaCl at [facility]. 14:16:38 Lab results completed and on chart. 14:16:41 Right groin area was prepped with chlora-prep and draped in sterile fashion 14:16:42 Alarms reviewed by R. N. 14:16:42 Sharps counted by scrub and verified by R.N. 14:16:46 Use device set Femoral Dx 14:16:47 ACIST Syringe (07377) opened to sterile field. 14:16:47 Bag Decanter (2002S) opened to sterile field. 14:16:48 ACIST Hand Control (68877) opened to sterile field. 14:16:48 ACIST Manifold (70760) opened to sterile field. 14:16:49 Tegaderm 4 x 4 (1626W) opened to sterile field. 14:16:49 Medline Cath Pack ([id number]) opened to sterile field. 14:16:50 DIAGNOSTIC Multipack 5Fr catheter set ([id number]) opened to sterile field. 14:16:51 SHEATH 5FR Matinicus (OCN611) opened to sterile field. 14:16:51 EMERALD Guide Wire (647-382) opened to sterile field. 14:20:51 --------ALL STOP TIME OUT------ 14:20:52 Final Timeout: patient, procedure, and site verified with staff and physician. All members of the team are in agreement. 14:20:53 Right groin site verified by team. 14:20:55 Fire Safety Assessment: A--An alcohol-based skin anteseptic being used preoperatively., C--Open oxygen or nitrous oxide is being used., D--An ESU, laser, or fiber-optic light is being used. 14:20:57 Physical assessment completed. ASA score P 2 - A patient with mild systemic disease as per Jos Mae MD. 14:21:01 3a) 45-59 Moderately reduced kidney function. 14:21:05 Maximum allowable contrast dose (3.7 X eGFR X 0.75)136 ml. 14:21:09 Sedation plan: IV Moderate Sedation Medication:Versed, Fentanyl 14:21:30 Versed 2 mg I.V. was administered by Clark Jaimes RN; for sedation; Verbal order read back and verified. 14:21:36 Fentanyl 100 mcg I.V. was administered by Clark Jaimes RN; for sedation; Verbal order read back and verified. 14:24:37 Procedure started. 14:24:44 Local anesthetic to right femoral artery with Lidocaine 2% by Jos Mae MD.INITIAL ACCESS ONLY 14:26:17 Versed 1 mg I.V. was administered by Clark Jaimes RN; for sedation; Verbal order read back and verified. 14:30:11 A 5 Fr sheath was inserted into the Right Femoral artery 14:30:31 Zero performed for pressure channel P1 14:30:51 A MULTIPACK JL 4.0 5Fr catheter was advanced over the wire and used for Procedure. 14:31:18 Versed 1 mg I.V. was administered by Clark Jaimes RN; for sedation; Verbal order read back and verified. 14:33:26 LCA angiography performed. 14:33:28 Catheter exchanged over wire. 14:34:09 A DIAGNOSTIC AR MOD 5Fr Catheter ([id number]) was advanced over the wire and used for Procedure. 14:34:40 RCA angiography performed. 14:35:30 SVG to Circ angiography performed. 14:36:33 SVG to RCA angiography performed. 14:36:54 Versed 1 mg I.V. was administered by Clark Jaimes RN; for sedation; Verbal order read back and verified. 14:38:11 Catheter exchanged over wire. 14:38:26 A DIAGNOSTIC IM 5Fr catheter ([id number]) was advanced over the wire and used for Procedure. 14:40:07 BROWN to LAD angiography performed. 14:40:10 Catheter exchanged over wire. 14:40:41 A MULTIPACK Pigtail 5 Fr catheter was advanced over the wire and used for Procedure. 14:41:16 LV gram done using GAO 14:41:23 Injector settings: Ml/sec: 10, Volume: 20, 14:42:05 LV hemodynamics recorded. 14:42:19 EF : 60 % 14:42:47 Aortic Root visualized 14:44:00 Catheter removed. 14:44:02 EXOSEAL 5Fr (EX500) opened to sterile field. 14:45:09 Sheath removed intact; hemostasis achieved with Exoseal to the Right Femoral artery. 14:45:11 Procedure ended.(Physican Out) 14:45:53 Fluoroscopy time 04.70 minutes. 14:45:56 Fluoroscopy dose: 766 mGy 14:45:56 Flurop Dose total: 766 14:46:00 Dose Area Product 55011 mGy/cm. 14:46:06 Contrast amount:Isovue 300 134ml. 14:46:24 Maximum allowable dose exceeded? No. 14:46:25 Sharps counted by scrub and verified by R.N. 14:46:36 Post-op/insertion site Right Femoral artery dressed using a 4 x 4 and Tegaderm. 14:46:39 Post-procedure physical assessment completed. ASA score P 2 - A patient with mild systemic disease as per Jos Mae MD. 14:46:42 Post procedure rhythm: sinus rhythm 14:46:45 Estimated blood loss: 5 ml 14:46:47 Post procedure instruction explained to patient.Patient verbalizes understanding. 14:46:47 Patient needs reinforcement of post procedure teaching. 14:47:17 Procedure type changed to Cath procedure, Diagnostic procedure, LHC, LHC w/Coronaries w/Grafts, Sedation Charges, Moderate Sedation up to 15 minutes 14:47:31 Procedure and supply charges have been captured, reviewed, submitted and are correct. 14:47:34 Procedure Complication : No complications 14:47:36 Vital chart was stopped 14:47:36 See physician's report for complete and final results. 14:47:38 Report given to Pre/Post Procedure Room. 14:47:40 Patient transfered to Pre/Post Procedure Room with Bed. 14:47:42 Procedure ended. 14:47:42 Full Disclosure recording stopped 14:47:47 End room use (Document Last) 14:51:15 End room use (Document Last) 14:51:43 End room use (Document Last) Device Usage Item Name Manufacture Quantity Catalog Hospital Part Current Minimal L ot# / Number Charge Number Stock Stock Serial# Code ACIST Acist 1 54745 655622 556659 140397 20 Syringe Medical (35216) Systems Inc Bag Microtek 1 2001S 503268 83398 509567 5 Decanter Medical Inc. (2001S) ACIST Hand Acist 1 00896 485807 764470 976002 5 Control Medical (41033) Systems Inc ACIST Acist 1 89414 201561 897557 397112 5 Manifold Medical (04919) Systems Inc Tegaderm 4 3M 1 1626W 781740 022329 116778 5 x 4 (1626W) Medline Medline 1 [id number] 656635 17531 237596 5 Cath Pack ([id number]) DIAGNOSTIC Cardinal 1 BE7036 736558 62719 498412 30 Multipack Health 5Fr catheter set (FZ5918) SHEATH 5FR Terumo 1 XLR131 144797 706441 263192 5 Matinicus (NLN686) EMERALD Cardinal 1 502-455 919151 190770 102873 5 Guide Wire Health (502-455) MULTIPACK Cardinal 1 716079 5 JL 4.0 5Fr Health catheter DIAGNOSTIC Cardinal 1 [id number] 595272 968369 261994 15 AR MOD 5Fr Health Catheter (843164G) DIAGNOSTIC Cardinal 1 [id number] 806317 087672 318521 5 IM 5Fr Health catheter (928032O) MULTIPACK Cardinal 1 710306 5 Pigtail 5 Health Fr catheter EXOSEAL 5Fr Cardinal 1 EX500 616856 329760 799370 10 (EX500) Health Signature Audit Eldena Stage Time Signature Unsigned Intra-Procedure 08/21/[address] 2:51:15 PM RT(R) Intra-Procedure 08/21/2019 Clark Jaimes RN 2:51:43 PM Intra-Procedure 08/21/2019 Jos Mae MD 2:52:01 PM [place] [address] [place] [address]
[2019-08-21] MEDS ORDERED: BAYER CHEWABLE81 MG PO (11:23)
[2019-08-21 11:31] VITALS: BP 139/118; Ht 170.2 cm; Wt 86.4 kg
[2019-08-21 11:52] LABS: BASOPHILS 0.4 % (0-2); EOSINOPHILS 1.7 % (0-7); HEMATOCRIT 37.6 % (42.0-54.0); IMMATURE GRANULOCYTES 0.4 % (0-5); LYMPHOCYTES 23.9 % (15-50); MCH 29.2 pg (26.0-34.0); MCHC 34.6 g/dL (31.0-37.0); MCV 84.5 fL (80.0-100.0); MONOCYTES 11.3 % (2-11); NEUTROPHILS 62.3 % (40-80); RBC 4.45 10x6/uL (4.20-6.10); RDW 14.8 % (11.5-14.5); WBC 4.7 10x3/uL (4.8-10.8)
[2019-08-21 12:08] LABS: PLATELET COUNT 129 10x3/uL (130-400)
[2019-08-21 12:57] LABS: ANION GAP 16.1 mmol/L (8-16); CALCIUM 9.3 mg/dL (8.5-10.1); CREATININE - SERUM 1.5 mg/dL (0.6-1.3); LDL-HDL RATIO 2.5 ratio (1.5-3.5); POTASSIUM - SERUM 4.1 mmol/L (3.5-5.1)
--- NOTE | 2019-08-21 15:00 | NUR ---
PATIENT ARRIVED TO ROOM 5, PLACED ON CM. VSS. RIGHT GROIN DRESSING IS CDI, NO S/S OF BLEEDING OR HEMATOMA.
--- NOTE | 2019-08-21 15:15 | NUR ---
PATIENT RESTING, VSS ON ROOM AIR. RIGHT GROIN DRESSING IS CDI, NO S/S OF BLEEDING OR HEMATOMA. NO C/O PAIN, NUMBNESS, OR TINGLING. NO N/V.
--- NOTE | 2019-08-21 15:45 | NUR ---
HEAD OF BED ELEVATED TO 30 DEGREES, RIGHT GROIN DRESSING IS CDI, NO S/S OF BLEEDING OR HEMATOMA. NO C/O PAIN, NUMBNESS, OR TINGLING. VSS ON ROOM AIR. NO N/V.
--- NOTE | 2019-08-21 16:15 | NUR ---
HEAD OF BED AT 90 DEGREES, PATIENT EATING SANDWICH AND DRINKING JUICE NO N/V. VSS ON ROOM AIR. RIGHT GROIN DRESSING IS CDI, NO S/S OF BLEEDING OR HEMATOMA. NO C/O PAIN, NUMBNESS, OR TINGLING.
--- NOTE | 2019-08-21 16:45 | NUR ---
RIGHT GROIN DRESSING IS CDI, NO S/S OF BLEEDING OR HEMATOMA. VSS. IV REMOVED. EDUCATION REGARDING DISCHARGE INSTRUCTIONS AND MEDICATION COMPLIANCE GIVEN TO PATIENT AND SPOUSE, BOTH VOICE UNDERSTANDING.
--- NOTE | 2019-08-21 16:50 | NUR ---
PATIENT VOIDED WITHOUT DIFFICULTY. PATIENT REFUSED WHEELCHAIR, ACCOMPANIED TO CAR WITH SPOUSE DRIVING, ALL BELONGINGS WITH PATIENT.
== END 2019-08-21 16:50 ==
LOC: D.CATH 10:57
PROVIDERS: ATTEND Internal Medicine Cardiovascular Disease
DX: I20.0 Unstable angina (principal); R94.30 Abnormal result of cardiovascular function study, unspecified